=== PATIENT | female | born 1990 | race Caucasian/White ===

== ENCOUNTER 2018-02-05 08:11 | Emergency (ER) | payer OTHER ==
[2018-02-05] MEDS ORDERED: ACETAMINOPHEN 325 MG TABLET PO ONE (08:24)
--- NOTE | 2018-02-05 09:10 | ER Document Report ---
ED GI/ - General Chief Complaint: Flank Pain Stated Complaint: BACK PAIN, DIZZY Time Seen by Provider: 02/05/18 09:08 Mode of Arrival: Ambulatory Information source: Patient Notes: 27 yo female c/o persistant UTI, taking cipro prescribed yesterday. generalized muscle and joint aches this morning. Doesn't feel well. No fever. No n/v/d. No chest or abd. pain. No headache. No dysuria, frequency or urgency. Worried about her kidney's, has not seen urologist yet. TRAVEL OUTSIDE OF THE [place] IN LAST 30 DAYS: No - Related Data Allergies/Adverse Reactions: codeine Allergy (Verified 02/05/18 08:16) Past Medical History - General Information source: Patient - Social History Smoking Status: Current Every Day Smoker Chew tobacco use (# tins/day): No Frequency of alcohol use: None Drug Abuse: None Lives with: Family Family History: Reviewed & Not Pertinent Patient has suicidal ideation: No Patient has homicidal ideation: No Renal/ Medical History: Reports: Hx Kidney Stones. Denies: Hx Peritoneal Dialysis Past Surgical History: Reports: Hx Gynecologic Surgery - ablasion r/t endometriosis, Hx Orthopedic Surgery - L wrist Review of Systems - Review of Systems Constitutional: See HPI EENT: No symptoms reported Cardiovascular: No symptoms reported Respiratory: No symptoms reported Gastrointestinal: No symptoms reported Genitourinary: See HPI Female Genitourinary: No symptoms reported Musculoskeletal: See HPI Skin: No symptoms reported Hematologic/Lymphatic: No symptoms reported Neurological/Psychological: No symptoms reported Physical Exam - Vital signs Vitals: Temp Pulse Resp BP Pulse Ox 98.7 F 107 H 16 120/79 98 02/05/18 08:14 02/05/18 08:14 02/05/18 08:14 02/05/18 08:14 02/05/18 08:14 Interpretation: Normal - General General appearance: Appears well, Alert - HEENT Head: Normocephalic, Atraumatic Eyes: Normal Pupils: PERRL - Respiratory Respiratory status: No respiratory distress Chest status: Nontender Breath sounds: Normal Chest palpation: Normal - Cardiovascular Rhythm: Regular Heart sounds: Normal auscultation Murmur: No - Abdominal Inspection: Normal Distension: No distension Bowel sounds: Normal Tenderness: Nontender Organomegaly: No organomegaly - Back Back: Normal, Nontender. No: CVA tenderness - Extremities General upper extremity: Normal inspection, Nontender, Normal color, Normal ROM , Normal temperature General lower extremity: Normal inspection, Nontender, Normal color, Normal ROM , Normal temperature, Normal weight bearing. No: Frank's sign - Neurological Neuro grossly intact: Yes Cognition: Normal Orientation: AAOx4 Radha Coma Scale Eye Opening: Spontaneous Radha Coma Scale Verbal: Oriented Radha Coma Scale Motor: Obeys Commands [place] Coma Scale Total: 15 Speech: Normal Motor strength normal: LUE, RUE, LLE, RLE Sensory: Normal - Psychological Associated symptoms: Normal affect, Normal mood - Skin Skin Temperature: Warm Skin Moisture: Dry Skin Color: Normal Course - Re-evaluation Re-evalutation: 02/05/18 12:13 Patient crying and tearful she is taking Lupron shot she is tired of hurting and being anxious. She used to take Prozac. She has been referred to pain management. I will give her a work note so that she can go back to work on Saturday so she can rest today and tomorrow. Explained the reasons she would need to come back to the emergency room for worsening symptoms. The urinalysis does not show any bacteria but the urine culture is pending. There was 13 RBCs in the urine renal ultrasound was negative for hydronephrosis. - Vital Signs Vital signs: Temp Pulse Resp BP Pulse Ox 98.2 F 88 16 119/70 98 02/05/18 12:56 02/05/18 12:56 02/05/18 12:56 02/05/18 12:56 02/05/18 12:56 - Laboratory Laboratory results interpreted by me: 02/05/18 09:12 Urine Ketones 20 H Urine Blood MODERATE H Discharge - Discharge Clinical Impression: Myalgia Arthralgia Qualifiers: Joint pain location: unspecified Qualified Code(s): M25.50 - Pain in unspecified joint Condition: Good Disposition: HOME, SELF-CARE Instructions: Acetaminophen, Arthralgia ([facility]), Ibuprofen (General) ([facility]), Myalagia (Muscle Pain) ([facility]), Warm Packs ([facility]) Additional Instructions: warm compress to sore areas tylenol up to 4000 mg per day Motrin 800 mg 3 times a day as needed Plenty of fluids Rest Return to the emergency room for any increased pain, trouble breathing, or, any concerns Urine culture pending Copy of imaging and urinalysis given to you. Forms: Return to Work Referrals: JAMAR MIXON, NEWSPAPER MANAGER-C [Primary Care Provider] - Follow up as needed
[2018-02-05 10:19] LABS: APPEARANCE,URINE CLEAR; BILIRUBIN,URINE NEGATIVE (NEGATIVE); COLOR,URINE YELLOW; GLUCOSE, URINE NEGATIVE (NEGATIVE); KETONES,URINE 20 mg/dL (NEGATIVE); LEUKOCYTE ESTERASE,URINE NEGATIVE (NEGATIVE); NITRITE,URINE NEGATIVE (NEGATIVE); PROTEIN,URINE NEGATIVE (NEGATIVE); URINE SPECIFIC GRAVITY 1.019; UROBILINOGEN,URINE NEGATIVE mg/dL (<2.0)
--- NOTE | 2018-02-05 11:56 | RADIOLOGY REPORT (SQ) ---
EXAM DESCRIPTION: U/S RETROPERITON (RENAL/AORTA) COMPLETED DATE/TIME: 02/05/2018 11:45 am REASON FOR STUDY: chronic UTI COMPARISON: None. TECHNIQUE: Dynamic and static grayscale images acquired of the kidneys and bladder and recorded on P ACS. Additional selected color Doppler and spectral images recorded. LIMITATIONS: None. FINDINGS: RIGHT KIDNEY: Normal size. Normal echogenicity. No solid or suspicious masses. No hydronep hrosis. No calcifications. LEFT KIDNEY: Normal size. Normal echogenicity. No solid or suspicious masses. No hydronephrosis. No calcifications. BLADDER: No masses. OTHER FINDINGS: No other significant finding. IMPRESSION: NORMAL RENAL AND BLADDER ULTRASOUND. TECHNICAL DOCUMENTATION: JOB ID: [id number] [employer]- All Rights Reserved Reading location - IP/workstation name: [email or web address]
[2018-02-05] MEDS ORDERED: IBUPROFEN 800 MG TABLET PO ONE (12:19)
[2018-02-05 13:02] VITALS: BP 119/70
== END 2018-02-05 13:02 | disposition home or self-care (01) ==
LOC: ER 08:11
DX: M79.1 Myalgia (principal); M25.50 Pain in unspecified joint; R31.9 Hematuria, unspecified; R10.9 Unspecified abdominal pain; M54.9 Dorsalgia, unspecified; R42 Dizziness and giddiness; F17.200 Nicotine dependence, unspecified, uncomplicated; Z79.899 Other long term (current) drug therapy
CPT/HCPCS: 76770; 81001; 81025; 87086; 99284

== ENCOUNTER 2018-08-05 17:02 | Emergency (ER) | payer OTHER ==
[2018-08-05] MEDS ORDERED: KETOROLAC TROMETHAMINE 60 MG/2 ML SDV IM ONE (19:19)
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
== END 2018-08-05 19:30 | disposition home or self-care (01) ==
LOC: ER 17:02
DX: S13.4XXA Sprain of ligaments of cervical spine, initial encounter (principal); V49.60XA Unspecified car occupant injured in collision with unspecified motor vehicles in traffic accident, initial encounter; F17.200 Nicotine dependence, unspecified, uncomplicated; Z88.5 Allergy status to narcotic agent
CPT/HCPCS: 99283; 96372; J1885